=== PATIENT | male | born 1975 | race African-American/Black ===

== ENCOUNTER → 2017-12-26 | Day surgery (SDC) | payer OTHER ==
[~2017-12-26] MED LIST: DEXAMETHASONE SOD PHOS 20 MG/5 ML VIAL.; LIDOCAINE 1% PF 2 ML VIAL. ID; MORPHINE SULFATE 4 MG/ML DISP.SYRIN.; ONDANSETRON PF 4 MG/2 ML VIAL.; ONDANSETRON PF 4 MG/2 ML VIAL. IV; PROCHLORPERAZINE 10 MG/2 ML VIAL. IV; PROPOFOL 20 ML IV; SEVOFLURANE 31 TO 60 MINUTES. IH; ceFAZolin 2GM PREMIX 2 GM/50 ML BAG IV; fentaNYL PF VIAL 100 MCG/2 ML VIAL; fentaNYL PF VIAL 100 MCG/2 ML VIAL IV; oxyCODONE/APAP 5/325 1 TAB TABLET PO
[2017-12-26] MEDS: IV RINGERS,LACTATED 1000ML 1,000 ML IV (07:00)
[2017-12-26 10:31] LABS: POC GLUCOSE 138 mg/dL (70-99)
[2017-12-26] MEDS: BUPIVACAINE 0.5% 50 ML VIAL. (12:36)
[2017-12-26] MEDS: fentaNYL PF VIAL 100 MCG/2 ML VIAL IV ×2 (13:25→13:34)
[2017-12-26] MEDS: MORPHINE SULFATE 4 MG/ML DISP.SYRIN. IV ×2 (13:42→14:06)
[2017-12-26 13:50] LABS: POC GLUCOSE 128 mg/dL (70-99)
[2017-12-26] MEDS: oxyCODONE/APAP 7.5/325 1 TAB TABLET PO (14:05)
[2017-12-26] MEDS: BACITRACIN TOPICAL OINT 14GM TUBE. TP (15:18)
== END | disposition home or self-care (01) ==
LOC: SURG 08:39
DX: R51 Headache (principal); I10 Essential (primary) hypertension; E11.9 Type 2 diabetes mellitus without complications; E78.00 Pure hypercholesterolemia, unspecified; E23.0 Hypopituitarism; J45.909 Unspecified asthma, uncomplicated; E66.9 Obesity, unspecified; Z68.41 Body mass index [BMI] 40.0-44.9, adult; Z98.890 Other specified postprocedural states; Z83.3 Family history of diabetes mellitus; Z79.899 Other long term (current) drug therapy
CPT/HCPCS: 37609; 82962; 88305; J0690; J1100; J2270; J2405; J2704; J3010; J3490

== ENCOUNTER 2019-11-22 13:07 | Emergency (ER) | payer OTHER ==
[~2019-11-22] VITALS: Ht 175.3 cm; Wt 123.0 kg
[~2019-11-22 13:07] MED LIST changes: +AMLO5TAB10 PO; +ATOR40TA59 PO; +ATORVASTATIN CA80 MG PO; +CABE0.5T PO; -DEXAMETHASONE SOD PHOS 20 MG/5 ML VIAL.; +DOCU50CA9 PO; +DULA1.5P SQ; +ERGO500027 PO; +FLUT9.9S NS; +GLIM4TAB8 PO; +HYDR1TAB10 PO; +INSU100I30 SQ; +LEVO500T59 PO; -LIDOCAINE 1% PF 2 ML VIAL. ID; +LISI-338 PO; +LISI10TA2 PO; +LORA10TA68 PO; -MORPHINE SULFATE 4 MG/ML DISP.SYRIN.; -ONDANSETRON PF 4 MG/2 ML VIAL.; -ONDANSETRON PF 4 MG/2 ML VIAL. IV; +OXYC1TAB15 PO; +PANT40GR PO; -PROCHLORPERAZINE 10 MG/2 ML VIAL. IV; -PROPOFOL 20 ML IV; +RANO500T2 PO; -SEVOFLURANE 31 TO 60 MINUTES. IH; +VENTOLIN HFA18 GM INH; -ceFAZolin 2GM PREMIX 2 GM/50 ML BAG IV; -fentaNYL PF VIAL 100 MCG/2 ML VIAL; -fentaNYL PF VIAL 100 MCG/2 ML VIAL IV; -oxyCODONE/APAP 5/325 1 TAB TABLET PO
--- NOTE | 2019-11-22 13:51 | PHYS DOC ---
Past Medical History Past Medical History: Diabetes-Type II, High Cholesterol, Hypertension, P neumonia Additional Past Surgical Histo: HERNIA, DEVIATED SEPTUM, RT KNEE Smoking Status: Never Smoker Alcohol Use: None Drug Use: None General Adult EDM: Chief Complaint: CONSTIPATION HPI: HPI: Patient is a 44 year old male with history of hypertension, dyslipidemia, diabetes mellitus, pneumonia who presents with complaint of constipation. Patient states has 2-3 bowel movement per week but for the last 4 days he did not have any bowel movement. Patient states he had one episode of vomiting 3 days ago and complaining of left upper quadrant cramping pain for the last 3 days with radiation to left flank and rated his pain 6/10. Patient states he had flatus and took [id number] milk of magnesia, magnesium citrate, laxative, Fleet enema without having any bowel movement. Patient denies fever, chills, shortness of breath chest pain, taking narcotic pain medication, history of the same problem. Patient had home telemetry visit with his primary care physician who recommended come to the ER for evaluation of bowel obstruction. Patient had history of hernia repair. Review of Systems: Review of Systems: Constitutional: Denies fever or chills. [] Eyes: Denies change in visual acuity. [] HENT: Denies nasal congestion or sore throat. [] Respiratory: Denies cough or shortness of breath. [] Cardiovascular: Denies chest pain or edema. [] GI: Reports abdominal pain, constipation, vomiting, denies bloody stools or diarrhea. [] : Denies dysuria. [] Musculoskeletal: Denies back pain or joint pain. [] Integument: Denies rash. [] Neurologic: Denies headache, focal weakness or sensory changes. [] Endocrine: Denies polyuria or polydipsia. [] Lymphatic: Denies swollen glands. [] Psychiatric: Denies depression or anxiety. [] Heart Score: Risk Factors: Risk Factors: DM, Current or recent (<one month) smoker, HTN, HLP, family history of CAD, obesity. Risk Scores: Score 0 - 3: 2.5% MACE over next 6 weeks - Discharge Home Score 4 - 6: 20.3% MACE over next 6 weeks - Admit for Clinical Observation Score 7 - 10: 72.7% MACE over next 6 weeks - Early Invasive Strategies Allergies: Allergies: Allergies Coded Allergies Type Severity Reaction Last Updated Verified No Known Drug Allergies 12/26/17 No Physical Exam: PE: Constitutional: Well developed, well nourished, mild distress, non-toxic appearance, morbidly obese. [] HENT: Normocephalic, atraumatic. Eyes: PERRLA, EOMI, conjunctiva normal, no discharge. [] Neck: Normal range of motion, no tenderness, supple, no stridor. [] Cardiovascular:Heart rate regular rhythm, no murmur [] Lungs & Thorax: Bilateral breath sounds clear to auscultation [] Abdomen: Bowel sounds normal, soft, left upper quadrant guarding, no tenderness, no masses, no pulsatile masses. [] Skin: Warm, dry, no erythema, no rash. [] Back: No tenderness, no CVA tenderness. [] Extremities: No tenderness, no cyanosis, no clubbing, ROM intact, no edema. [] Neurologic: Alert and oriented X 3, no focal deficits noted. [] Psychologic: Affect normal, judgement normal, mood normal. [] Current Patient Data: Vital Signs: Vital Signs Date Time Temp Pulse Resp B/P (MAP) Pulse Ox O2 Delivery O2 Flow Rate FiO2 11/22/19 13:13 98.1 81 16 158/103 (121) 97 Room Air 98.1 EKG: EKG: [] Radiology/Procedures: Radiology/Procedures: [facility] [address] [place] [address] IMAGING REPORT Signed PATIENT: NHAN GONZALES ACCOUNT: [id number] : 1975 LOCATION: ER AGE: 44 SEX: M EXAM STATUS: PRE ER ORD. PHYSICIAN: SAVITA KOVACS MD REASON: Left upper quadrant pain with constipation-N/V X 3 DAYS PROCEDURE: CT ABDOMEN PELVIS WO CONTRAST CT ABDOMEN PELVIS WO CONTRAST History: Left upper quadrant pain. Constipation. Technique: Noncontrast examination of the abdomen and pelvis. Coronal and sagittal reconstructions were performed. Exposure: One or more of the following individualized dose reduction techniques were utilized for this examination: 1. Automated exposure control 2. Adjustment of the mA and/or kV according to patient size 3. Use of iterative reconstruction technique. Comparison: None Findings: Lower chest: No consolidation or pleural effusion. Abdomen and pelvis: Hepatic steatosis. The spleen, adrenal glands, pancreas and gallbladder are unremarkable. No biliary ductal dilatation. Normal appearance of the kidneys. No hydronephrosis. No renal, ureteral or urinary bladder stone. Normal appendix. No evidence of bowel obstruction. Anterior abdominal wall hernia repair. Mild colonic stool burden. No pathologic lymphadenopathy. No ascites. Bones: No pathologic osseous lesions. Impression: 1. No acute abdominal or pelvic pathology. 2. Hepatic steatosis. Electronically signed by: Rich Perez DO (11/22/2019 2:06 PM) [id number] DICTATED and SIGNED BY: RICH PEREZ DO DATE: 11/22/19 1407 Course & Med Decision Making: Course & Med Decision Making Pertinent Labs and Imaging studies reviewed. (See chart for details) [] Dragon Disclaimer: Dragon Disclaimer: This electronic medical record was generated, in whole or in part, using a voice recognition dictation system. Departure Departure Impression: Primary Impression: Constipation Qualified Codes: K59.00 - Constipation, unspecified Disposition: HOME, SELF-CARE (At 1530) Condition: STABLE Referrals: LAURA RODRIGUEZ MD (PCP) Patient Instructions: Constipation, Adult Additional Instructions: Drink plenty of liquids Follow-up with your primary care physician in 3-5 days Return to ER if not getting better Thank you for visiting [facility]. We appreciate you trusting us with your care. If any additional problems come up don't hesitate to return to visit us. Please follow up with your primary care provider so they can plan additional care if needed and know about the problem that you had. If symptoms worsen come back to the Emergency Department. Any concerning symptoms that start such as chest pain, shortness of air, weakness or numbness on one side of the body, running high fevers or any other concerning symptoms return to the ER. Scripts Peg 3350/Na Sulf,Bicarb,Cl/Kcl (GOLYTELY SOLUTION) 4,000 Ml Soln.recon 4000 ML PO 1X, #1 MISC Drink 1 cup every an hour until having a bowel movements Prov: SAVITA KOVACS MD 11/22/19 SAVITA KOVACS MD Nov 22, 2019 13:50
[2019-11-22 14:03] LABS: BASO # 0.1 x10^3/uL (0.0-0.2); BASO % 1 % (0-3); EOS # 0.1 x10^3/uL (0.0-0.7); EOS % 2 % (0-3); HEMATOCRIT 43.3 % (39.0-53.0); HEMOGLOBIN 14.5 g/dL (13.0-17.5); LYMPH # 2.4 x10^3/uL (1.0-4.8); LYMPH % 25 % (24-48); MEAN CORPUSCULAR HEMOGLOBIN 28 pg (25-35); MEAN CORPUSCULAR HGB CONC 34 g/dL (31-37); MEAN CORPUSCULAR VOLUME 83 fL (79-100); MONO % 10 % (0-9); NEUT # 6.1 x10^3/uL (1.8-7.7); NEUT % 63 % (31-73); PLATELET COUNT 259 x10^3/uL (140-400); RED BLOOD COUNT 5.23 x10^6/uL (4.30-5.70); RED CELL DISTRIBUTION WIDTH 15.4 % (11.5-14.5); WHITE BLOOD COUNT 9.8 x10^3/uL (4.0-11.0)
--- NOTE | 2019-11-22 14:09 | RAD ---
CT ABDOMEN PELVIS WO CONTRAST History: Left upper quadrant pain. Constipation. Technique: Noncontrast examination of the abdomen and pelvis. Coronal and sagittal reconstructions were performed. Exposure: One or more of the following individualized dose reduction techniques were utilized for this examination: 1. Automated exposure control 2. Adjustment of the mA and/or kV according to patient size 3. Use of iterative reconstruction technique. Comparison: None Findings: Lower chest: No consolidation or pleural effusion. Abdomen and pelvis: Hepatic steatosis. The spleen, adrenal glands, pancreas and gallbladder are unremarkable. No biliary ductal dilatation. Normal appearance of the kidneys. No hydronephrosis. No renal, ureteral or urinary bladder stone. Normal appendix. No evidence of bowel obstruction. Anterior abdominal wall hernia repair. Mild colonic stool burden. No pathologic lymphadenopathy. No ascites. Bones: No pathologic osseous lesions. Impression: 1. No acute abdominal or pelvic pathology. 2. Hepatic steatosis. Electronically signed by: Rich Perez DO (11/22/2019 2:06 PM) [id number]
[2019-11-22 14:23] LABS: CALCIUM 8.7 mg/dL (8.5-10.1); GFR 98.2; POTASSIUM 3.8 mmol/L (3.5-5.1)
[2019-11-22 14:29] LABS: ALBUMIN 3.3 g/dL (3.4-5.0); ALBUMIN/GLOBULIN RATIO 0.8 (1.0-1.7); TOTAL BILIRUBIN 0.6 mg/dL (0.2-1.0); TOTAL PROTEIN 7.3 g/dL (6.4-8.2)
[2019-11-22 14:55] LABS: BILIRUBIN,URINE NEGATIVE (NEG); CLARITY,URINE CLEAR; COLOR,URINE YELLOW; NITRITE,URINE NEGATIVE (NEG); PROTEIN,URINE NEGATIVE (NEG-TRACE); UROBILINOGEN,URINE 0.2 mg/dL (0.2 mg/dL)
[2019-11-22 15:05] LABS: BACTERIA,URINE 0 /HPF (0-FEW); WBC,URINE 0 /HPF (0-4)
[2019-11-22 15:06] LABS: SQUAMOUS EPITHELIAL CELL,UR OCC /LPF
[2019-11-22 15:08] LABS: BARBITURATES NEG (NEG); BENZODIAZEPINES NEG (NEG); CANNABINOIDS NEG (NEG); COCAINE NEG (NEG); METHADONE NEG (NEG); OPIATES NEG (NEG); PHENCYCLIDINE NEG (NEG)
[2019-11-22 15:10] LABS: AMPHETAMINE/METHAMPHETAMINE NEG (NEG)
[2019-11-22 15:27] VITALS: BP 116/62
[2019-11-22] MEDS ORDERED: PEG4000S8 PO (15:35)
== END 2019-11-22 15:40 | disposition home or self-care (01) ==
LOC: ER 13:07
DX: K59.00 Constipation, unspecified (principal); E78.00 Pure hypercholesterolemia, unspecified; I10 Essential (primary) hypertension; E11.9 Type 2 diabetes mellitus without complications; K76.0 Fatty (change of) liver, not elsewhere classified; Z98.890 Other specified postprocedural states
CPT/HCPCS: 36415; 74176; 80053; 80307; 81001; 83690; 85025; 99285-25